=== PATIENT | male | born 1995 | race Caucasian/White ===

== ENCOUNTER 2016-09-23 00:33 | Emergency (ER) | payer OTHER ==
[~2016-09-23] VITALS: Ht 185.4 cm; Wt 68.0 kg
[2016-09-23 00:35] VITALS: BP 134/84; PULSE 88; RESP 16; TEMP 98.6; O2SAT 98
--- NOTE | 2016-09-23 01:45 | PD ---
HPI Chief Complaint: Fall Time Seen by Provider: 01:41 Travel History International Travel<30 days: No Contact w/Intl Traveler<30days: No Traveled to known affect area: No History of Present Illness HPI 20-year-old [id number]-[id number] white male presents to emergency department for evaluation of bilateral elbow and right wrist pain after attempting to jump over a friend at a alliance party tonight. He states that he had fallen on his outstretched hands. Since the injury he has had decreased ability to extend his elbows. He is also complaining pain in the wrist. He denies striking his head. No neck or back pain. No injury to his trunk or abdomen. The patient does admit to drinking alcohol. He denies any numbness or tingling. Patient states the pain is mild to moderate. Worse with movement. Some relief with remaining still. PFSH Past Medical History Medical History: Denies Significant Hx Tetanus Vaccination: < 5 Years Past Surgical History Surgical History: No Previous Surgery Social History Alcohol Use: Yes Tobacco Use: No Substance Use: No Allergies-Medications (Allergen,Severity, Reaction): Coded Allergies: No Known Allergies (Unverified , 09/23/16) Reported Meds & Prescriptions Reported Meds & Active Scripts Active No Active Prescriptions or Reported Medications Review of Systems Except as stated in HPI: all other systems reviewed are Neg Physical Exam Narrative GENERAL: Well-developed, well-nourished in no apparent distress. Nontoxic appearing. Smells of EtOH. HEAD: Normocephalic, atraumatic. EYES: Pupils equal round and reactive. Extraocular motions intact. No scleral icterus. No injection or drainage. ENT: Nose clear. Throat without erythema, tonsillar hypertrophy or exudate. Uvula midline. Airway patent. NECK: Trachea midline. Supple, nontender, moves head freely. No central bony tenderness or spasm. CARDIOVASCULAR: Regular rate and rhythm without murmurs, gallops, or rubs. RESPIRATORY: Clear to auscultation. Breath sounds equal bilaterally. No wheezes , rales, or rhonchi. GASTROINTESTINAL: Abdomen soft, non-tender, nondistended. No hepato-splenomegaly , or palpable masses. No guarding. EXTREMITIES: No clubbing, cyanosis, or edema. Examination of the upper extremities reveals no obvious bony deformity in the elbows. He complains of pain with extension bilaterally. I am able to fully flex, supinate and pronate his elbows. He complains of tenderness of the distal right radius. No snuffbox tenderness. The left wrist is unremarkable. No hand pain or deformity. No pain or deformity in the glenohumeral joints or clavicles. BACK: Nontender without deformity. No flank tenderness. NEUROLOGICAL: Awake, alert and oriented x 3 .Cranial nerves grossly intact. Motor and sensory grossly within normal limits. Normal speech. Data Data Last Documented VS Vital Signs Date Time Temp Pulse Resp B/P Pulse Ox O2 Delivery O2 Flow Rate FiO2 09/23/16 00:35 98.6 88 16 134/84 98 Orders Elbow, Complete (4 Vws) (09/23/16 01:28) Wrist, Complete (Fks0agl) (09/23/16 01:28) Elbow, Complete (4 Vws) (09/23/16 01:28) Splint Or Brace Apply/Monitor (09/23/16 02:01) Splint Or Brace Apply/Monitor (09/23/16 02:14) MDM Medical Decision Making Medical Screen Exam Complete: Yes Emergency Medical Condition: Yes Medical Record Reviewed: Yes Interpretation(s) Last 24 hours Impressions Wrist X-Ray 09/23/16127 Signed Impressions: Service Date/Time: Friday, September 23, 2016 01:55 - CONCLUSION: Unremarkable examination of the right wrist. Jose Reynaga MD Elbow X-Ray 09/23/16127 Signed Impressions: Service Date/Time: Friday, September 23, 2016 01:56 - CONCLUSION: Radial fracture with elbow joint effusion. Jose Reynaga MD Elbow X-Ray 09/23/16127 Signed Impressions: Service Date/Time: Friday, September 23, 2016 01:53 - CONCLUSION: Radial head fracture with elbow joint effusion. Jose Reynaga MD Differential Diagnosis MDM: High Differential diagnoses: Fracture, sprain, strain, dislocation, contusion, neurovascular injury Narrative Course X-ray of the left elbow reveals a slightly does placed radial head fracture. He is placed in a long-arm splint. The right elbow reveals a nondisplaced related fracture. The wrist shows no obvious fracture but there is a concern for possible scaphoid fracture is placed in a thumb spica splint is given 2 slings. Bilateral radial head fractures, right wrist sprain rule out scaphoid fracture Diagnosis Primary Impression: bilateral radial head fractures Additional Impression: Occult fracture of scaphoid bone of right wrist Qualified Code: S62.001A - Occult fracture of scaphoid bone of right wrist, closed, initial encounter Patient Instructions: General Instructions Additional Instructions: Rest. Slings. Keep your splints clean and dry. 3 Advil every 6 hours. Lortab for severe pain Follow-up with an orthopedist within 1 week. Return to the ER if any problems. Med/Other Pt SpecificInfo: Prescription(s) given Scripts Hydrocodone-Acetaminophen (Lortab)5-325 Mg Tab1 Tab PO Q4H PRN (PAIN) #20 TAB Prov:Chrissy Yeung MD 09/23/16 Disposition: 01 DISCHARGE HOME Condition: Stable Claudio Norris Sep 23, 2016 01:45
--- NOTE | 2016-09-23 01:55 | RADRPT ---
EXAM DATE/TIME: 09/23/2016 01:55 [facility] COMPARISON: No previous studies available for comparison. INDICATIONS : Right wrist pain post fall. MEDICAL HISTORY : None. SURGICAL HISTORY : None. ENCOUNTER: Initial ACUITY: 1 day PAIN SCORE: 3/10 LOCATION: Right wrist. FINDINGS: Three view examination of the right wrist demonstrates no soft tissue swelling, dislocation, or fract ure. The carpal bones are in normal alignment. The joint spaces are maintained. Bony mineralizatio n is normal. CONCLUSION: Unremarkable examination of the right wrist. Jose Reynaga MD on September 23, 2016 at 1:54 Board Certified Radiologist. This report was verified electronically.
--- NOTE | 2016-09-23 01:56 | RADRPT ---
EXAM DATE/TIME: 09/23/2016 01:53 [facility] COMPARISON: ELBOW RIGHT COMPLETE (4 VWS), September 23, 2016, 1:56. INDICATIONS : Left elbow pain post fall. MEDICAL HISTORY : None. SURGICAL HISTORY : None. ENCOUNTER: Initial ACUITY: 1 day PAIN SCORE: 3/10 LOCATION: Left elbow. FINDINGS: Normal bone density. Anterior and posterior fat-pad signs are noted consistent with an elbow joint ef fusion. There is a slightly displaced fracture of the radial head noted. This involves the articular surface. CONCLUSION: Radial head fracture with elbow joint effusion. Jose Reynaga MD on September 23, 2016 at 1:54 Board Certified Radiologist. This report was verified electronically.
--- NOTE | 2016-09-23 01:57 | RADRPT ---
EXAM DATE/TIME: 09/23/2016 01:56 [facility] COMPARISON: ELBOW LEFT COMPLETE (4 VWS), September 23, 2016, 1:53. INDICATIONS : Right elbow pain post fall today. MEDICAL HISTORY : None. SURGICAL HISTORY : None. ENCOUNTER: Initial ACUITY: 1 day PAIN SCORE: 3/10 LOCATION: Right elbow. FINDINGS: Elbow joint effusion is noted. There is slight cortical step-off seen of the neck of the radius. This is consistent with a nondisplaced fracture. Normal bone density. CONCLUSION: Radial fracture with elbow joint effusion. Jose Reynaga MD on September 23, 2016 at 1:55 Board Certified Radiologist. This report was verified electronically.
[2016-09-23] MEDS ORDERED: HYDR-3533 PO (02:15)
== END 2016-09-23 04:11 | disposition home or self-care (01) ==
LOC: NEPB 00:33
DX: S52.122A Displaced fracture of head of left radius, initial encounter for closed fracture (principal); S52.134A Nondisplaced fracture of neck of right radius, initial encounter for closed fracture; S62.001A Unspecified fracture of navicular [scaphoid] bone of right wrist, initial encounter for closed fracture; W19.XXXA Unspecified fall, initial encounter; Y93.39 Activity, other involving climbing, rappelling and jumping off; Y92.89 Other specified places as the place of occurrence of the external cause
CPT/HCPCS: 29105; 73080; 73110; 99284; L3808